=== PATIENT | male | born 1960 | race Caucasian/White ===

== ENCOUNTER 2020-11-14 11:28 | Observation (INO) | payer OTHER ==
[~2020-11-14] VITALS: Ht 182.9 cm; Wt 97.7 kg
[2020-11-14] MEDS ORDERED: ondansetron/PF 4mg/2ml inj IV ONE ×2 (11:40→14:50)
[2020-11-14] MEDS: morphine 4 MG/ML inj SYRINge IV PRN ×2 (12:24→20:30)
--- NOTE | 2020-11-14 12:40 | NUR ---
[facility] Office [place] #[id number] bedside; log 72 issued.
[2020-11-14 12:43] LABS: BASOPHILS % (AUTO) 0.1 % (0-1); EOSINOPHILS % (AUTO) 0.1 % (0-6); HEMATOCRIT 47.7 % (42.0-52.0); HEMOGLOBIN 16.3 g/dl (14.0-17.9); LYMPHOCYTES # (AUTO) 0.8 X10'3 (1.1-4.8); LYMPHOCYTES % (AUTO) 4.8 % (21-51); MEAN CORPUSCULAR HEMOGLOBIN 30.7 PG (27.0-31.0); MEAN CORPUSCULAR HGB CONC 34.2 g/dL (33.0-36.5); MEAN CORPUSCULAR VOLUME 89.7 FL (78-98); MEAN PLATELET VOLUME 8.4 FL (7.4-10.4); MONOCYTES # (AUTO) 0.6 X10'3 (0-0.9); MONOCYTES % (AUTO) 3.6 % (2-12); NEUTROPHILS # (AUTO) 14.5 X10'3 (1.8-7.7); NEUTROPHILS % (AUTO) 91.4 % (42-75); PLATELET COUNT 193 X10'3 (140-440); RED BLOOD COUNT 5.32 X10'6 (4.70-6.10); RED CELL DISTRIBUTION WIDTH 12.9 % (11.5-14.5); WHITE BLOOD COUNT 15.8 X10'3 (4.5-11.0)
[2020-11-14 12:58] LABS: ALANINE AMINOTRANSFERASE 35 U/L (12-78); ALBUMIN 4.2 G/DL (3.4-5.0); ALBUMIN/GLOBULIN RATIO 1.2 (1.1-1.5); ALKALINE PHOSPHATASE 47 IU/L (46-116); ANION GAP 10 (8-16); ASPARTATE AMINO TRANSFERASE 26 U/L (10-37); BILIRUBIN,TOTAL 0.6 MG/DL (0.1-1.0); BLOOD UREA NITROGEN 17 MG/DL (7-18); BUN/CREATININE RATIO 13.5 (5.4-32.0); CALCIUM 8.8 MG/DL (8.5-10.1); CHLORIDE 103 MMOL/L (99-107); CREATININE 1.26 MG/DL (0.60-1.10); GLUCOSE 164 MG/DL (70-104); LIPASE 94 U/L (73-393); POTASSIUM 4.2 MMOL/L (3.5-5.1); SODIUM 139 MMOL/L (135-145); TOTAL CARBON DIOXIDE 25.6 MMOL/L (24-32); TOTAL PROTEIN 7.6 G/DL (6.4-8.2); eGFR 58 ML/MIN
[2020-11-14] MEDS ORDERED: iohexol 350MG/ML 100ml bottle IV ONE (13:05)
[2020-11-14 14:45] LABS: CLARITY,URINE CLEAR (Clear); COLOR,URINE YELLOW (Yellow); GLUCOSE, URINE NEGATIVE (Neg); KETONES,URINE NEGATIVE (Neg); LEUKOCYTE ESTERASE ,URINE NEGATIVE (Neg); NITRITES, URINE NEGATIVE (Neg); OCCULT BLOOD,URINE SMALL (Neg); PROTEIN,URINE NEGATIVE (Neg); UROBILINOGEN,URINE 0.2 E.U/dL (0.2-1.0)
[2020-11-14 14:50] LABS: UA COLLECTION TYPE VOIDED
[2020-11-14] MEDS ORDERED: morphine 4 MG/ML inj SYRINge IV ONE (14:50)
[2020-11-14 14:55] LABS: BACTERIA,URINE FEW /HPF (Neg); SQUAMOUS EPITHELIAL CELL,UR FEW /LPF (FEW); WBC,URINE 0-4 /HPF (0-4)
[2020-11-14 15:56] LABS: CREATINE KINASE 252 U/L (39-308)
[2020-11-14] MEDS ORDERED: metoclopramide 5 mg/ml inj IV PRN (16:20)
[2020-11-14] MEDS ORDERED: magnesium hydroxide 30ml (MOM) UD suspension PO PRN (16:20)
[2020-11-14] MEDS ORDERED: potassium Cl 20 mEq SR tablet PO PRN ×2 (16:20)
[2020-11-14] MEDS ORDERED: potassium Cl 40MEQ/1/2NS 520ml 520 ML IV PRN ×2 (16:20)
[2020-11-14] MEDS ORDERED: mag hydrox/Alum hydrox/simeth 30ml oral suspension PO PRN (16:20)
[2020-11-14] MEDS ORDERED: HYDROcodone/acetaminophen 5mg/325mg tablet PO PRN (16:20)
[2020-11-14] MEDS ORDERED: bisacodyl 10mg suppository rectal RC PRN (16:20)
[2020-11-14] MEDS ORDERED: magnesium 2GM in 50ml NS 50 ML IV PRN (16:20)
[2020-11-14] MEDS ORDERED: magnesium 4gm in 100ml NS 100 ML IV PRN (16:20)
[2020-11-14] MEDS ORDERED: ondansetron/PF 4mg/2ml inj IV PRN (16:20)
[2020-11-14] MEDS ORDERED: magnesium Cl slow-release 64mg tablet PO PRN (16:20)
[2020-11-14] MEDS ORDERED: acetaminophen 325mg tablet PO PRN ×2 (16:20)
[2020-11-14 16:38] LABS: PARTIAL THROMBOPLASTIN TIME 25 SECONDS (22-32)
[2020-11-14] MEDS: normal saline 1000ml 1,000 ML IV SCH (16:46)
[2020-11-14] MEDS ORDERED: NO HOME MEDS (17:36)
[2020-11-14] MEDS: K and/or MAG REPLACEMENT MC SCH (20:22)
--- NOTE | 2020-11-14 20:40 | NUR ---
Received report from Armando ARCHULETA. Pt arrived on the unit via gurney with only the personal belongings he had on and his phone. NS was running at 100 mls/hr, VSS and on room air. Pt had no signs of distress, will continue to monitor.
[2020-11-14] MEDS ORDERED: temazepam 15mg capsule PO PRN (21:00)
[2020-11-14 21:11] VITALS: BP 174/87
[2020-11-15] VITALS: BP 103/70
[2020-11-15] MEDS: normal saline 1000ml 1,000 ML IV SCH ×2 (02:20→05:30)
[2020-11-15] MEDS ORDERED: ASPI-611 PO (02:47)
[2020-11-15] MEDS: HYDROcodone/acetaminophen 10/325mg tab PO PRN ×2 (05:30→10:29)
--- NOTE | 2020-11-15 06:27 | NUR ---
Problems reprioritized. Patient report given, questions answered & plan of care reviewed with Shannan ARCHULETA.
--- NOTE | 2020-11-15 06:29 | NUR ---
Patient in room [facility]. I have received report from KATHE Gutierrez and had the opportunity to ask questions and assume patient care.
[2020-11-15 06:37] LABS: BASOPHILS % (AUTO) 0.3 % (0-1); EOSINOPHILS % (AUTO) 0.5 % (0-6); HEMATOCRIT 42.4 % (42.0-52.0); HEMOGLOBIN 14.5 g/dl (14.0-17.9); LYMPHOCYTES # (AUTO) 1.2 X10'3 (1.1-4.8); LYMPHOCYTES % (AUTO) 15.4 % (21-51); MEAN CORPUSCULAR HEMOGLOBIN 30.6 PG (27.0-31.0); MEAN CORPUSCULAR HGB CONC 34.3 g/dL (33.0-36.5); MEAN CORPUSCULAR VOLUME 89.4 FL (78-98); MEAN PLATELET VOLUME 8.7 FL (7.4-10.4); MONOCYTES # (AUTO) 0.8 X10'3 (0-0.9); MONOCYTES % (AUTO) 9.9 % (2-12); NEUTROPHILS # (AUTO) 5.7 X10'3 (1.8-7.7); NEUTROPHILS % (AUTO) 73.9 % (42-75); PLATELET COUNT 164 X10'3 (140-440); RED BLOOD COUNT 4.75 X10'6 (4.70-6.10); RED CELL DISTRIBUTION WIDTH 13.3 % (11.5-14.5); WHITE BLOOD COUNT 7.7 X10'3 (4.5-11.0)
[2020-11-15 06:50] LABS: ALANINE AMINOTRANSFERASE 31 U/L (12-78); ALBUMIN 3.3 G/DL (3.4-5.0); ALKALINE PHOSPHATASE 40 IU/L (46-116); ANION GAP 11 (8-16); ASPARTATE AMINO TRANSFERASE 15 U/L (10-37); BILIRUBIN,TOTAL 0.8 MG/DL (0.1-1.0); BLOOD UREA NITROGEN 17 MG/DL (7-18); BUN/CREATININE RATIO 13.1 (5.4-32.0); CALCIUM 8.1 MG/DL (8.5-10.1); CHLORIDE 105 MMOL/L (99-107); CREATINE KINASE 309 U/L (39-308); GLUCOSE 119 MG/DL (70-104); MAGNESIUM 2.1 MG/DL (1.5-2.4); SODIUM 141 MMOL/L (135-145); TOTAL CARBON DIOXIDE 25.5 MMOL/L (24-32); TOTAL PROTEIN 6.5 G/DL (6.4-8.2); eGFR 56 ML/MIN
[2020-11-15 07:00] VITALS: BP 116/67
[2020-11-15] MEDS: K and/or MAG REPLACEMENT MC SCH (08:00)
[2020-11-15] MEDS ORDERED: HYDR-3964 PO (11:05)
[2020-11-15 12:02] VITALS: BP 130/77
--- NOTE | 2020-11-15 13:52 | NUR ---
Pt discharged to home at 1325, with all belongings, in private vehicle accompanied by . Discharge instructions and medications reviewed. New prescription for pain medication provided to pt with instructions to take to preferred pharmacy to fill. Pt and spouse educated regarding risks of constipation with taking norco 5/325, as well as provided with information on how to prevent it. Pt instructed to follow up with PCP within 1 week, pt states he has already made appointment with PCP for November 17. Pt states understanding and willingness to comply with all discharge instructions. IV DC'd, cannula intact. Pt escorted to front lobby via wheelchair by hospital volunteer.
== END 2020-11-15 13:25 | disposition home or self-care (01) ==
LOC: ER 11:29 → ED HOLD 16:16 → SUR 3N 20:45
PROVIDERS: ADMIT Family Medicine; ATTEND Family Medicine
DX: S22.42XA Multiple fractures of ribs, left side, initial encounter for closed fracture (principal); S06.0X9A Concussion with loss of consciousness of unspecified duration, initial encounter; S27.0XXA Traumatic pneumothorax, initial encounter; D72.829 Elevated white blood cell count, unspecified; E11.9 Type 2 diabetes mellitus without complications; E78.5 Hyperlipidemia, unspecified; I10 Essential (primary) hypertension; V29.9XXA Motorcycle rider (driver) (passenger) injured in unspecified traffic accident, initial encounter; Y92.89 Other specified places as the place of occurrence of the external cause; Y93.89 Activity, other specified; Y99.8 Other external cause status
CPT/HCPCS: 36415; 70450; 71045; 71260; 72125; 74177; 80053; 81001; 82550; 83690; 83735; 85025; 85610; 85730; 87081; 93005; 96361; 96374; 96375; 96376; 99285; G0378; J2270; J2405; J7030; Q9967